=== PATIENT | female | born 2000 | race Caucasian/White ===

== ENCOUNTER 2023-07-26 16:50 | Emergency (ER) | payer OTHER, SELFPAY ==
[2023-07-26 16:57] VITALS: BP 117/71
[2023-07-26 17:26] VITALS: BP 106/75
[2023-07-26 17:28] VITALS: BMI 23.6
--- NOTE | 2023-07-26 17:57 | ED.GENMED ---
History of Present Illness
General
Chief Complaint: Headache
Source: patient
Exam Limitations: none
Time Seen by Provider: 07/26/23 17:20
Nursing documentation reviewed up to this point in time: agreed with
Travel History
Have you had any contact with someone who has COVID-19?: No
Do you have any symptoms of coronavirus? Fever > 100 degrees, chills, cough, shortness of breath, sore throat, loss of taste or smell, muscle aches, or headache?: No
History of Present Illness
History of Present Illness:
22-year-old female with no significant past medical history states for about a month she has had intermittent 'tenseness,', 'pressure' mainly on the top of her head and if she presses on the top of her head with her hands it helps but as soon as she
leaves go it comes back. Symptoms have been worse over the past week and today she had a 'quick sharp pain on the top of her head.' She denies change in vision. No recent head trauma.
Denies N/V/D/C, denies chest pain or trouble breathing, denies problems with ambulation, denies numbness or tingling or weakness in her extremities.
Past History
Past History
ED Past Medical History: None
ED Past Surgical History: Other (Miranda teeth)
Social History
Tobacco: Non-smoker
Alcohol: Occasional
Personal: Single
Living: with family
Employment: Employed
Review of Systems
Review of Systems
Allergies reviewed?: Yes
All Other Systems: ROS reviewed and negative except as documented in HPI and ROS
Constitutional: Denies fever or fatigue
EENT: Reports other (no photophobia); Denies sore throat
Respiratory: Denies trouble breathing
Cardiac: Denies chest pain
ABD/GI: Denies abdominal pain, nausea, vomiting, diarrhea, constipated or anorexia
: Denies dysuria or frequency
Musculoskeletal: Reports no symptoms
Skin: Reports no symptoms
Neurological: Reports headache (Not really headache but sensation on the top of her head of tenseness and pressure); Denies dizzy, weakness or numbness
Phy Exam
Physical Exam
Physical Exam:
GENERAL: No acute distress. A&Ox3.
CONSTITUTIONAL: Afebrile.
EYES: PERRL, conjunctivae normal
Neck: Supple
ENMT: moist mucus membranes, Pharynx nl, TMs normal
RESPIRATORY: Regular respirations, nonlabored, lungs clear.
CARDIOVASCULAR: Regular rate and rhythm, no murmurs, no rubs.
GI: Soft, nontender, normal BS
MUSCULOSKELETAL: Nontender to palpation thoracic or c spine areas. Moves with ease. Well perfused.
SKIN: Warm, dry, pink
PSYCH: Normal mood and affect. Well kept, interactive and appropriate
NEUROLOGIC: Awake, alert and oriented. Cranial nerves II through XII intact, cerebellum intact, ambulates well with steady gait, no focal neurological deficits
Course
Orders/Labs/Results
Orders:
Orders
07/26/23 17:57
CT Head W/o Iv Contrast Urgent
Comment:
Reason For Exam: pains, pressure top of head
Vital Signs
Initial and Last Documented VS:
Initial Vital Signs
Temp Pulse Resp BP Pulse Ox
99.0 F 108 16 117/71 97
07/26/23 16:57 07/26/23 16:57 07/26/23 16:57 07/26/23 16:57 07/26/23 16:57
Last Documented Vital Signs
Temp Pulse Resp BP Pulse Ox
99.0 F 108 16 106/75 99
07/26/23 16:57 07/26/23 16:57 07/26/23 16:57 07/26/23 17:26 07/26/23 17:30
MDM/Problems Addressed
Differential Diagnosis Includes:
Anxiety about illness, cephalgia, stress, tension headache, migraine
MDM/Problems Addressed:
22-year-old female with no significant past medical history states for about a month she has had intermittent 'tenseness,', 'pressure' mainly on the top of her head and if she presses on the top of her head with her hands it helps but as soon as she
leaves go it comes back. Symptoms have been worse over the past week and today she had a 'quick sharp pain on the top of her head.' She denies change in vision. No recent head trauma.
Denies N/V/D/C, denies chest pain or trouble breathing, denies problems with ambulation, denies numbness or tingling or weakness in her extremities.
Patient states she will feel a lot better she has a head CT and it is normal
No abnormal neurological findings
No feature of a migraine, no infectious meningeal signs
7:[address] head normal
Pt reassured
*Critical Care Note
Total Time (30-74mins, 75-104mins- exclusive of procedures): Not Applicable
ED Attending Note
-
Portions of this chart may have been created with voice recognition software.� Occasional wrong word or��sound alike� substitutions may have occurred due to the inherent limitations of voice recognition software.
Discharge Plan
Departure
Patient Disposition: Home (Routine Discharge)
Date of Disposition: 07/26/23
Time of Disposition: 19:04
Patient with high blood pressure during this ER visit?: No
Condition: Good
Discharge Problem:
Head pain cephalgia
Instructions: Headache, Adult (DC)
Referrals:
NONE,* [Active] -
Fidencio Gordon, DO [Family Provider] - As needed
Activity Restrictions/Additional Instructions:
As we discussed, your head CT is normal
You have what we call 'cephalgia.'
Google it FYI and see what possible triggers you may have.
Interventions
Interventions:
*Risk Screen - Suicide Last Done: 07/26/23 17:28
*General Assessment Last Done: 07/26/23 17:28
*Neglect/Abuse Screening Last Done: 07/26/23 17:28
ED- Fall Risk Assessment Last Done: 07/26/23 17:28
*ED COVID-19 Vaccine History Last Done: 07/26/23 17:28
ED- Neurological Assessment Last Done: 07/26/23 17:28
Discharge Date and Time
Print Language: NEPALI
== END 2023-07-26 19:42 | disposition home or self-care (01) ==
LOC: EMR 16:50
PROVIDERS: EMERGENCY PHYSICIAN Emergency Medicine; FAMILY PHYSICIAN Family Medicine
DX: R51.9 Headache, unspecified (principal)
CPT/HCPCS: 99284; 70450